=== PATIENT | female | born 1995 | race African-American/Black ===

== ENCOUNTER 2021-04-30 23:03 | Emergency (ER) | payer SELFPAY ==
[2021-05-01] MEDS ORDERED: Morphine 10 MG/ML VIAL ONE (00:02)
== END 2021-05-01 01:00 | disposition home or self-care (01) ==
LOC: BURERS 23:03
DX: S63.501A Unspecified sprain of right wrist, initial encounter (principal); S40.011A Contusion of right shoulder, initial encounter; X58.XXXA Exposure to other specified factors, initial encounter
CPT/HCPCS: 96372; J2270